=== PATIENT | female | born 1990 | race Caucasian/White ===

== ENCOUNTER 2018-01-02 10:28 | Emergency (ER) | payer OTHER ==
--- NOTE | 2018-01-02 10:41 | ER Document Report ---
ED Medical Screen (RME) - General Chief Complaint: Nausea/Vomiting/Diarrhea Stated Complaint: NAUSEA, VOMITING, DIARRHEA Time Seen by Provider: 01/02/18 10:40 Mode of Arrival: Wheelchair Information source: Patient, Relative Notes: 27-year-old female vomited 3 times today comes in minimally responsive sweating pale Patient noted to be significantly hypotensive carried out of the car I have greeted and performed a rapid initial assessment of this patient. A comprehensive ED assessment and evaluation of the patient, analysis of test results and completion of the medical decision making process will be conducted by additional ED providers. PHYSICAL EXAMINATION: GENERAL: Very ill pale appearing female HEAD: Atraumatic, normocephalic. EYES: Pupils equal round extraocular movements intact, conjunctiva are normal. ENT: Nares patent NECK: Normal range of motion LUNGS: No respiratory distress Musculoskeletal: Normal range of motion NEUROLOGICAL: Patient not answering questions appropriately PSYCH: Normal mood, normal affect. SKIN: Pale and diaphoretic TRAVEL OUTSIDE OF THE [place] IN LAST 30 DAYS: No - Related Data Allergies/Adverse Reactions: No Known Allergies Allergy (Verified 01/02/18 10:30)
[2018-01-02] MEDS: NORMAL SALINE 1000 ML 1,000 ML IV PRN ×2 (10:56→10:57)
--- NOTE | 2018-01-02 11:00 | ER Document Report ---
ED General - General Mode of Arrival: Wheelchair Information source: Patient, Relative TRAVEL OUTSIDE OF THE [place] IN LAST 30 DAYS: No <JUANIS HARDING - Last Filed: 01/02/18 11:13> <MELANIE LYMAN - Last Filed: 01/02/18 15:02> - General Chief Complaint: Nausea/Vomiting/Diarrhea Stated Complaint: NAUSEA, VOMITING, DIARRHEA Time Seen by Provider: 01/02/18 10:40 Notes: Patient is a 27 year old female presenting to the emergency department accompanied by complaining of nausea, vomiting and diarrhea onset 0330 this morning. states the patient, who lives in [facility], drove to work here in [facility] despite her symptoms. He further states the patient called him and told him she felt like she could not drive home due to feeling so weak so he brought her to the emergency department. At bedside, patient is initially minimally responsive but states her last episode of diarrhea was 1 hr ago. She further states she no longer feels nauseous but feels extremely weak. Patient denies any hematemeis, blood in stool or sick contacts. Patient gave approximately 10 months ago via . states the patient is currently taking Vivance. (JUANIS HARDING) - Related Data Allergies/Adverse Reactions: No Known Allergies Allergy (Verified 01/02/18 10:30) Past Medical History - General Information source: Patient, Relative - Social History Smoking Status: Current Some Day Smoker Frequency of alcohol use: Occasional Drug Abuse: None Family History: Reviewed & Not Pertinent Patient has suicidal ideation: No Patient has homicidal ideation: No Psychiatric Medical History: Reports: Hx Attention Deficit Hyperactivity Disorder Past Surgical History: Reports: Hx Section <JUANIS HARDING - Last Filed: 01/02/18 11:13> Review of Systems - Review of Systems Constitutional: No symptoms reported EENT: No symptoms reported Cardiovascular: No symptoms reported Respiratory: No symptoms reported Gastrointestinal: See HPI, Diarrhea, Nausea, Vomiting Genitourinary: No symptoms reported Female Genitourinary: No symptoms reported Musculoskeletal: No symptoms reported Skin: No symptoms reported Hematologic/Lymphatic: No symptoms reported Neurological/Psychological: No symptoms reported -: Yes All other systems reviewed and negative <JUANIS HARDING - Last Filed: 01/02/18 11:13> Physical Exam - General General appearance: Other - Appears weak, pale. Hypotensive. Initially lethargic. - Respiratory Respiratory status: No respiratory distress - Cardiovascular Rhythm: Regular Heart sounds: Normal auscultation Murmur: No Friction rub: No Gallop: None auscultated - Abdominal Inspection: Normal Distension: No distension Bowel sounds: Normal Tenderness: Nontender Organomegaly: No organomegaly - Extremities General upper extremity: Normal ROM General lower extremity: Normal ROM - Neurological Neuro grossly intact: Yes Cognition: Normal Orientation: AAOx4 Jasper Coma Scale Eye Opening: Spontaneous [place] Coma Scale Verbal: Oriented [place] Coma Scale Motor: Obeys Commands [place] Coma Scale Total: 15 Speech: Normal - Psychological Associated symptoms: Normal affect, Normal mood - Skin Skin Temperature: Warm Skin Moisture: Diaphoretic Skin Color: Normal <JUANIS HARDING - Last Filed: 01/02/18 11:13> <MELANIE LYMAN - Last Filed: 01/02/18 15:02> - Vital signs Vitals: Resp Pulse Ox 21 H 99 01/02/18 10:53 01/02/18 10:53 - Neurological Notes: Initially lethargic. (JUANIS HARDING) Course - Laboratory Result Diagrams: 01/02/18 10:41 01/02/18 10:41 <JUANIS HARDING - Last Filed: 01/02/18 11:13> - Laboratory Result Diagrams: 01/02/18 10:41 01/02/18 10:41 <MELANIE LYMAN - Last Filed: 01/02/18 15:02> - Re-evaluation Re-evalutation: 01/02/18 14:58 Patient was quite hypotensive and lethargic when she arrived. After IV fluids, her pressure came back up and she woke up and reported she was feeling much better and much closer to her normal self. At this time she is feeling better, wants to go home, but does feel quite exhausted from the ordeal. (MELANIE LYMAN) - Vital Signs Vital signs: Temp Pulse Resp BP Pulse Ox 20 109/72 98 01/02/18 12:29 01/02/18 12:29 01/02/18 12:29 - Laboratory Laboratory results interpreted by me: 01/02/18 01/02/18 01/02/18 10:36 10:41 10:41 WBC 15.3 H Seg Neuts % (Manual) 94 H Lymphocytes % (Manual) 3 L Monocytes % (Manual) 2 L Abs Neuts (Manual) 14.4 H Chloride 111 H Carbon Dioxide 19 L Glucose 154 H POC Glucose 155 H Urine Glucose (UA) 01/02/18 12:24 WBC Seg Neuts % (Manual) Lymphocytes % (Manual) Monocytes % (Manual) Abs Neuts (Manual) Chloride Carbon Dioxide Glucose POC Glucose Urine Glucose (UA) >=500 H Critical Care Note - Critical Care Note Total time excluding time spent on procedures (mins): 30 <MELANIE LYMAN - Last Filed: 01/02/18 15:02> Discharge <JUANIS HARDING - Last Filed: 01/02/18 11:13> <MELANIE LYMAN - Last Filed: 01/02/18 15:02> - Discharge Clinical Impression: Nausea, vomiting and diarrhea, Hypovolemic shock Hypotension Qualifiers: Hypotension type: unspecified hypotension type Qualified Code(s): I95.9 - Hypotension, unspecified Condition: Stable Disposition: HOME, SELF-CARE Additional Instructions: Gastroenteritis: You most likely have gastroenteritis. This is an irritation of the stomach and intestinal tract. It's usually caused by a virus, but can also be caused by bacteria, toxins that cause food poisoning, or excessive alcohol intake. Symptoms may include fever, painful abdominal cramps, nausea, vomiting , and diarrhea. Start with small amounts (two to six ounces) of clear liquids (soft drinks , herb teas, broth, etc). Try to take fluids frequently even if you are vomiting, to prevent dehydration. When liquids are being consumed successfully , advance to small amounts of bland food (mashed potato, toast) for 6 - 12 hours. Gastroenteritis rarely requires medication. It goes away by itself. Use good handwashing so you don't spread germs. Wash underwear in very hot water. If symptoms are severe, talk to the doctor. Call your physician if blood appears in your vomitus or stool, if vomiting lasts longer than 24 hours, if the abdominal pain worsens or becomes localized to one area, or if you develop high fever. & You most likely have a viral gastroenteritis causing your nausea, vomiting and diarrhea. You became hypovolemic with very low blood pressure. You should drink small sips of cool clear liquids throughout the day in the evening. Take the medicine as prescribed for nausea, you may supplement with Benadryl for additional nausea control if needed. Follow-up with your doctor tomorrow if not feeling better. Take fall precautions until you know you are back to normal. RETURN TO THE EMERGENCY ROOM IF ANY NEW OR WORSENING SYMPTOMS. Prescriptions: Ondansetron [Zofran Odt 4 mg Tablet] 1 - 2 tab SL Q4H PRN #15 tab.rapdis PRN Reason: For Nausea/Vomiting Forms: Return to Work Scribe Attestation: 01/02/18 11:35 I personally performed the services described in the documentation, reviewed and edited the documentation which was dictated to the scribe in my presence, and it accurately records my words and actions. (MELANIE LYMAN) Scribe Documentation - Scribe Written by French:: French Vargas, 01/02/2018 11:09 acting as scribe for :: Aaron <JUANIS HARDING - Last Filed: 01/02/18 11:13>
[2018-01-02 11:19] LABS: HEMATOCRIT 41.8 % (36.0-47.0); MEAN CORPUSCULAR HEMOGLOBIN 28.2 pg (27.0-33.4); MEAN CORPUSCULAR HGB CONC 33.4 g/dL (32.0-36.0); MEAN CORPUSCULAR VOLUME 85 fl (80-97); PLATELET COUNT 338 10^3/uL (150-450); RED BLOOD COUNT 4.95 10^6/uL (3.72-5.28); WHITE BLOOD COUNT 15.3 10^3/uL (4.0-10.5)
[2018-01-02] MEDS ORDERED: DEXTROSE 5%-LACTATED RINGERS 1,000 ML IV ONE (11:34)
[2018-01-02 11:48] LABS: ALANINE AMINOTRANSFERASE 26 U/L (9-52); ALBUMIN 4.1 g/dL (3.5-5.0); ALKALINE PHOSPHATASE 73 U/L (38-126); ANION GAP 14 (5-19); ASPARTATE AMINO TRANSFERASE 19 U/L (14-36); BILIRUBIN,DIRECT 0.3 mg/dL (0.0-0.4); BILIRUBIN,TOTAL 0.4 mg/dL (0.2-1.3); BLOOD UREA NITROGEN 19 mg/dL (7-20); CALCIUM 9.4 mg/dL (8.4-10.2); CARBON DIOXIDE 19 mmol/L (22-30); CHLORIDE 111 mmol/L (98-107); GLUCOSE 154 mg/dL (75-110); SODIUM 144.3 mmol/L (137-145); TOTAL PROTEIN 6.7 g/dL (6.3-8.2)
[2018-01-02 11:54] LABS: ABSOLUTE LYMPHOCYTES# (MANUAL) 0.5 10^3/uL (0.5-4.7); ABSOLUTE MONOCYTES # (MANUAL) 0.3 10^3/uL (0.1-1.4); ABSOLUTE NEUTROPHILS# (MANUAL) 14.4 10^3/uL (1.7-8.2); BASOPHILS % (MANUAL) 1 % (0-2); EOSINOPHILS % (MANUAL) 0 % (0-6); LYMPHOCYTES % (MANUAL) 3 % (13-45); MONOCYTES % (MANUAL) 2 % (3-13); SEGMENTED NEUTROPHILS % (MAN) 94 % (42-78); TOTAL CELLS COUNTED 100
[2018-01-02 11:55] LABS: OVALOCYTES SLIGHT; PLATELET COMMENT ADEQUATE; POIKILOCYTOSIS SLIGHT
[2018-01-02 12:49] LABS: AMORPHOUS SEDIMENT,URINE TRACE /HPF; APPEARANCE,URINE SLIGHTLY-CLOUDY; BILIRUBIN,URINE NEGATIVE (NEGATIVE); COLOR,URINE YELLOW; GLUCOSE, URINE >=500 mg/dL (NEGATIVE); KETONES,URINE NEGATIVE (NEGATIVE); LEUKOCYTE ESTERASE,URINE NEGATIVE (NEGATIVE); NITRITE,URINE NEGATIVE (NEGATIVE); PROTEIN,URINE NEGATIVE (NEGATIVE); URINE SPECIFIC GRAVITY 1.011; UROBILINOGEN,URINE NEGATIVE mg/dL (<2.0)
[2018-01-02] MEDS ORDERED: METOCLOPRAMIDE HCL INJ/PF 10 MG/2 ML SDV IV ONE (13:31)
[2018-01-02 15:43] VITALS: BP 100/69
== END 2018-01-02 15:30 | disposition home or self-care (01) ==
LOC: ER 10:28
DX: R11.2 Nausea with vomiting, unspecified (principal); R19.7 Diarrhea, unspecified; R57.1 Hypovolemic shock; I95.9 Hypotension, unspecified; R53.1 Weakness; F17.200 Nicotine dependence, unspecified, uncomplicated
CPT/HCPCS: 99285; 96361; 96374; 36415; 82962; 83735; 84703; 85025; 80053; 81001; J2765; J7030